=== PATIENT | female | born 1970 | race Caucasian/White ===

== ENCOUNTER 2020-12-29 20:12 | Emergency (ER) | payer BC ==
[~2020-12-29] VITALS: Ht 172.7 cm; Wt 64.0 kg
[2020-12-29] MEDS ORDERED: ZOFRAN4 MG PO (21:13)
== END 2020-12-29 21:39 | disposition home or self-care (01) ==
LOC: ED 20:12
DX: K52.9 Noninfective gastroenteritis and colitis, unspecified (principal); Z20.822 Contact with and (suspected) exposure to COVID-19; Z88.8 Allergy status to other drugs, medicaments and biological substances
CPT/HCPCS: 99284; C9803; U0003